=== PATIENT | male | born 1935 | race Caucasian/White ===

== ENCOUNTER 2022-06-10 14:40 | Inpatient (IN) | payer MEDICARE, OTHER ==
[2022-06-10] VITALS: BP_SYST 115; BP_SYST 118; BP_DIAS 63
[~2022-06-10] VITALS: Ht 175.3 cm; Wt 67.1 kg
[~2022-06-10 14:40] MED LIST: LISI10TA24 PO
[2022-06-10 15:11] LABS: HEMATOCRIT 37.7 % (42-54); MEAN CORPUSCULAR HEMOGLOBIN 30.9 pg (27.0-33.0); MEAN CORPUSCULAR HGB CONC 33.7 g/dL (32.0-36.0); MEAN CORPUSCULAR VOLUME 91.7 fL (79-99); RED BLOOD CELL COUNT(AUTO) 4.11 MIL/uL (4.50-6.20); RED CELL DISTRIBUTION WIDTH 13.1 % (11.0-15.5); WHITE BLOOD COUNT (AUTO) 4.4 K/uL (4.8-10.8)
[2022-06-10 15:34] LABS: ALANINE AMINOTRANSFERASE 24 U/L (12-78); ALBUMIN 4.2 g/dL (3.5-5.0); ASPARTATE AMINOTRANSFERASE 33 U/L (10-37); CARBON DIOXIDE 26 mmol/L (21-32); CHLORIDE 99 mmol/L (101-111); CREATININE 1.3 mg/dL (0.5-1.5); GLOMERULAR FILTR. RATE CALC 55 mL/min (>60); GLUCOSE,RANDOM 211 mg/dL (70-105); SODIUM SERUM 137 mmol/L (136-145); TOTAL PROTEIN, SERUM 7.9 g/dL (6.0-8.3); UREA NITROGEN, BLOOD 24 mg/dL (7-18)
[2022-06-10] MEDS ORDERED: TETANUS/DIPHTHERIA TOXOID [ADULT] 0.5 ML VIAL IM ONE (16:30)
[2022-06-10] MEDS ORDERED: METF-444 PO (17:37)
[2022-06-10] MEDS ORDERED: DAPA10TA PO (17:37)
[2022-06-10 17:39] LABS: B-TYPE NATRIURETIC PEPTIDE 172 pg/mL (0-100)
[2022-06-10 18:21] LABS: ERYTHROCYTE SEDIMENTATION RATE 23 MM/HR (0-20)
[2022-06-10 18:38] VITALS: BP 126/58
[2022-06-10 19:10] VITALS: BP 120/60
[2022-06-10] MEDS ORDERED: ACETAMINOPHEN 325 MG TAB PO PRN (19:30)
[2022-06-10] MEDS: SOLU-MEDROL 125MG VIAL IVP SCH (20:52)
[2022-06-10] MEDS: INSULIN HUMULIN R 100 UNIT/ML 3ML SQ SCH (20:53)
[2022-06-10] MEDS: DOXYCYCLINE HYCLATE 100 MG TABLET PO SCH (20:53)
[2022-06-11] VITALS (7 sets, daily range): BP systolic 113–147; BP diastolic 50–70
[2022-06-11 04:45] LABS: HEMATOCRIT 38.5 % (42-54); LYMPHOCYTES % (AUTO) 20.3 % (21.0-51.0); MEAN CORPUSCULAR HEMOGLOBIN 30.3 pg (27.0-33.0); MEAN CORPUSCULAR HGB CONC 33.2 g/dL (32.0-36.0); MONOCYTES % (AUTO) 11.7 % (3.0-13.0); NEUTROPHILS % (AUTO) 66.4 % (40.0-77.0); PLATELET COUNT (AUTO) 73 K/uL (130-400); RED BLOOD CELL COUNT(AUTO) 4.23 MIL/uL (4.50-6.20); RED CELL DISTRIBUTION WIDTH 13.2 % (11.0-15.5); WHITE BLOOD COUNT (AUTO) 3.2 K/uL (4.8-10.8)
[2022-06-11 05:02] LABS: ALANINE AMINOTRANSFERASE 28 U/L (12-78); ALBUMIN 3.8 g/dL (3.5-5.0); ASPARTATE AMINOTRANSFERASE 40 U/L (10-37); CARBON DIOXIDE 26 mmol/L (21-32); CHLORIDE 101 mmol/L (101-111); CREATININE 1.4 mg/dL (0.5-1.5); GLOMERULAR FILTR. RATE CALC 51 mL/min (>60); GLUCOSE,RANDOM 239 mg/dL (70-105); POTASSIUM 4.1 mmol/L (3.5-5.1); SODIUM SERUM 139 mmol/L (136-145); TOTAL PROTEIN, SERUM 7.3 g/dL (6.0-8.3); UREA NITROGEN, BLOOD 25 mg/dL (7-18)
[2022-06-11] MEDS: INSULIN HUMULIN R 100 UNIT/ML 3ML SQ SCH ×4 (06:30→20:56)
[2022-06-11] MEDS: DOXYCYCLINE HYCLATE 100 MG TABLET PO SCH ×2 (09:22→20:54)
[2022-06-11] MEDS: SOLU-MEDROL 125MG VIAL IVP SCH ×2 (09:22→20:54)
[2022-06-12 04:09] VITALS: BP 135/71
[2022-06-12 08:00] VITALS: BP 158/67
[2022-06-12] MEDS: INSULIN HUMULIN R 100 UNIT/ML 3ML SQ SCH ×4 (08:38→21:54)
[2022-06-12] MEDS: SOLU-MEDROL 40MG VIAL IVP SCH ×2 (10:38→21:52)
[2022-06-12] MEDS: DOXYCYCLINE HYCLATE 100 MG TABLET PO SCH ×2 (10:38→21:52)
[2022-06-12] MEDS: APIXABAN 2.5 MG TABLET PO SCH ×2 (10:38→21:52)
[2022-06-12 11:43] VITALS: BP 154/71
[2022-06-12 16:00] VITALS: BP 139/71
[2022-06-12 19:52] VITALS: BP 142/54
[2022-06-12] MEDS: NIRMATRELVIR PO SCH (21:52)
[2022-06-12] MEDS: RITONAVIR PO SCH (21:52)
[2022-06-12 23:34] VITALS: BP 147/61
[2022-06-13 03:49] VITALS: BP 130/60
[2022-06-13] MEDS: INSULIN HUMULIN R 100 UNIT/ML 3ML SQ SCH ×4 (07:30→21:53)
[2022-06-13 07:57] VITALS: BP 152/50
[2022-06-13] MEDS: NIRMATRELVIR PO SCH ×2 (09:00→21:56)
[2022-06-13] MEDS: RITONAVIR PO SCH ×2 (09:00→21:56)
[2022-06-13] MEDS: SOLU-MEDROL 40MG VIAL IVP SCH ×2 (09:35→21:42)
[2022-06-13] MEDS: DOXYCYCLINE HYCLATE 100 MG TABLET PO SCH ×2 (09:35→21:42)
[2022-06-13] MEDS: APIXABAN 2.5 MG TABLET PO SCH ×2 (09:35→21:43)
[2022-06-13 12:00] VITALS: BP 157/69
[2022-06-13 16:00] VITALS: BP 136/66
[2022-06-13 21:28] VITALS: BP 147/58
[2022-06-13 23:53] VITALS: BP 145/68
[2022-06-14 04:36] VITALS: BP 140/63
[2022-06-14] MEDS: INSULIN HUMULIN R 100 UNIT/ML 3ML SQ SCH ×3 (07:45→21:00)
[2022-06-14 08:00] VITALS: BP 168/59
[2022-06-14] MEDS: RITONAVIR PO SCH ×2 (09:34→20:54)
[2022-06-14] MEDS: SOLU-MEDROL 40MG VIAL IVP SCH ×2 (09:34→20:53)
[2022-06-14] MEDS: NIRMATRELVIR PO SCH ×2 (09:34→20:54)
[2022-06-14] MEDS: DOXYCYCLINE HYCLATE 100 MG TABLET PO SCH ×2 (09:35→20:53)
[2022-06-14] MEDS: APIXABAN 2.5 MG TABLET PO SCH ×2 (09:35→20:53)
[2022-06-14 12:00] VITALS: BP 153/60
[2022-06-14 16:00] VITALS: BP 152/57
[2022-06-14 20:42] VITALS: BP 134/62
[2022-06-15 00:15] VITALS: BP 136/63
[2022-06-15 04:28] VITALS: BP 139/66
[2022-06-15] MEDS: INSULIN HUMULIN R 100 UNIT/ML 3ML SQ SCH ×4 (06:20→21:00)
[2022-06-15 07:20] VITALS: BP 145/58
[2022-06-15] MEDS: METFORMIN HCL 500 MG TABLET PO SCH ×2 (08:34→16:00)
[2022-06-15] MEDS: LISINOPRIL 10 MG TABLET PO SCH (08:35)
[2022-06-15] MEDS: APIXABAN 2.5 MG TABLET PO SCH ×2 (08:35→22:24)
[2022-06-15] MEDS: PREDNISONE 10 MG TABLET PO SCH (08:35)
[2022-06-15] MEDS: DOXYCYCLINE HYCLATE 100 MG TABLET PO SCH ×2 (08:35→22:24)
[2022-06-15] MEDS: **HM** FARXIGA 10MG PO SCH (08:41)
[2022-06-15] MEDS: RITONAVIR PO SCH ×2 (08:41→22:25)
[2022-06-15] MEDS: NIRMATRELVIR PO SCH ×2 (08:41→22:25)
[2022-06-15 11:20] VITALS: BP 146/65
[2022-06-15 15:20] VITALS: BP 145/63
[2022-06-15] MEDS ORDERED: LACTULOSE 20 GM/30 ML UDCUP ONE (15:54)
[2022-06-15] MEDS ORDERED: LACTULOSE 20 GM/30 ML UDCUP PO ONE (16:30)
[2022-06-15 21:22] VITALS: BP 132/63
[2022-06-16] VITALS (7 sets, daily range): BP systolic 135–154; BP diastolic 53–69
[2022-06-16] MEDS: INSULIN HUMULIN R 100 UNIT/ML 3ML SQ SCH ×4 (06:26→21:55)
[2022-06-16] MEDS: NIRMATRELVIR PO SCH ×2 (08:28→21:53)
[2022-06-16] MEDS: RITONAVIR PO SCH ×2 (08:28→21:53)
[2022-06-16] MEDS: **HM** FARXIGA 10MG PO SCH (08:29)
[2022-06-16] MEDS: METFORMIN HCL 500 MG TABLET PO SCH ×2 (08:33→16:41)
[2022-06-16] MEDS: DOXYCYCLINE HYCLATE 100 MG TABLET PO SCH ×2 (08:33→21:53)
[2022-06-16] MEDS: APIXABAN 2.5 MG TABLET PO SCH ×2 (08:33→21:53)
[2022-06-16] MEDS: LISINOPRIL 10 MG TABLET PO SCH (08:33)
[2022-06-16] MEDS: PREDNISONE 10 MG TABLET PO SCH (08:34)
[2022-06-17 03:13] VITALS: BP 132/68
[2022-06-17] MEDS: INSULIN HUMULIN R 100 UNIT/ML 3ML SQ SCH ×4 (06:39→21:00)
[2022-06-17 07:20] VITALS: BP 144/49
[2022-06-17] MEDS ORDERED: CLONAZEPAM 0.5 MG TABLET PO PRN (08:00)
[2022-06-17] MEDS: RITONAVIR PO SCH ×3 (09:00→20:55)
[2022-06-17] MEDS: NIRMATRELVIR PO SCH ×3 (09:00→20:55)
[2022-06-17] MEDS: **HM** FARXIGA 10MG PO SCH (09:00)
[2022-06-17] MEDS: APIXABAN 2.5 MG TABLET PO SCH ×2 (09:52→20:55)
[2022-06-17] MEDS: LISINOPRIL 10 MG TABLET PO SCH (09:52)
[2022-06-17] MEDS: METFORMIN HCL 500 MG TABLET PO SCH ×2 (09:52→17:35)
[2022-06-17] MEDS: PREDNISONE 10 MG TABLET PO SCH (09:52)
[2022-06-17] MEDS: DOXYCYCLINE HYCLATE 100 MG TABLET PO SCH ×2 (09:52→20:53)
[2022-06-17 11:00] VITALS: BP 138/61
[2022-06-17 15:10] VITALS: BP 104/57
[2022-06-17 20:27] VITALS: BP 131/62
[2022-06-17 23:31] VITALS: BP 152/71
[2022-06-18 03:13] VITALS: BP 130/60
[2022-06-18] MEDS: INSULIN HUMULIN R 100 UNIT/ML 3ML SQ SCH ×2 (06:53→12:20)
[2022-06-18] MEDS: LISINOPRIL 10 MG TABLET PO SCH (08:17)
[2022-06-18] MEDS: PREDNISONE 10 MG TABLET PO SCH (08:17)
[2022-06-18] MEDS: DOXYCYCLINE HYCLATE 100 MG TABLET PO SCH (08:17)
[2022-06-18] MEDS: METFORMIN HCL 500 MG TABLET PO SCH (08:18)
[2022-06-18] MEDS: RITONAVIR PO SCH (08:19)
[2022-06-18] MEDS: APIXABAN 2.5 MG TABLET PO SCH (08:19)
[2022-06-18] MEDS: **HM** FARXIGA 10MG PO SCH (08:19)
[2022-06-18] MEDS: NIRMATRELVIR PO SCH (08:19)
[2022-06-18 08:40] VITALS: BP 102/54
[2022-06-18 12:10] VITALS: BP 121/66
== END 2022-06-18 17:00 | DRG 177 ==
LOC: EDH 14:40 → EDHIP 16:33 → 2AH 18:23 → 3AH 06-11 22:15
PROVIDERS: ADMIT Internal Medicine; ATTEND Internal Medicine
PROC: 3E0234Z Introduction of Serum, Toxoid and Vaccine into Muscle, Percutaneous Approach (ICD-10-PCS; principal; 2022-06-10)
DX: U07.1 COVID-19 (principal); J12.82 Pneumonia due to coronavirus disease 2019; N17.9 Acute kidney failure, unspecified; D69.6 Thrombocytopenia, unspecified; I12.9 Hypertensive chronic kidney disease with stage 1 through stage 4 chronic kidney disease, or unspecified chronic kidney disease; N18.30 Chronic kidney disease, stage 3 unspecified; Z95.0 Presence of cardiac pacemaker; E11.22 Type 2 diabetes mellitus with diabetic chronic kidney disease; E78.5 Hyperlipidemia, unspecified; Z23 Encounter for immunization; E86.0 Dehydration; Z90.49 Acquired absence of other specified parts of digestive tract; N40.0 Benign prostatic hyperplasia without lower urinary tract symptoms
CPT/HCPCS: 36415; 70450; 71045; 80053; 82728; 82948; 83880; 84484; 85025; 85027; 85378; 85651; 87635; 93005; 97039; C9803; G0378; J1815; J2920; J2930; J7512

== ENCOUNTER → 2023-04-30 | Outpatient (CLI) | payer MEDICARE, OTHER ==
[~2023-04-30] MED LIST changes: +DAPA10TA PO; +METF-444 PO
== END | disposition home or self-care (01) ==
LOC: RAH 14:20
PROVIDERS: ATTEND Internal Medicine
DX: R05.1 Acute cough (principal)
CPT/HCPCS: 71046